=== PATIENT | male | born 1965 | race Caucasian/White ===

== ENCOUNTER 2024-11-25 06:20 | Inpatient (IN) | payer OTHER ==
[~2024-11-25] VITALS: Ht 167.6 cm; Wt 71.7 kg
[2024-11-25] VITALS (29 sets, daily range): BP systolic 101–145; BP diastolic 66–88; TEMP 97–100.6; O2SAT 98–100
[2024-11-25] MEDS ORDERED: BUPIVACAINE 0.5 % PF 150 MG/30 ML VIAL ONE (06:56)
[2024-11-25] MEDS ORDERED: POLYMYXIN B SULFATE 0 UNITS ONE (06:56)
[2024-11-25] MEDS ORDERED: TRANEXAMIC ACID 1,000 MG/10 ML VIAL ONE ×3 (06:56→10:40)
[2024-11-25] MEDS ORDERED: ANESTHESIA TRAY IN PYXIS 1 EA TRAY MC ONE (06:56)
[2024-11-25] MEDS ORDERED: FENTANYL PF 250MCG/5ML AMPUL ONE (07:13)
[2024-11-25] MEDS ORDERED: ROCURONIUM BROMIDE 50 MG/5 ML ONE (07:15)
[2024-11-25] MEDS ORDERED: TRIAMCINOLONE ACETONIDE SUSP 40 MG/ML 1 ML ONE ×2 (07:51→07:52)
[2024-11-25] MEDS ORDERED: KETOROLAC TROMETHAMINE INJ 30 MG/ML VIAL ONE (07:51)
[2024-11-25] MEDS ORDERED: VANCOMYCIN 1 GM VIAL ONE (07:52)
[2024-11-25] MEDS ORDERED: BUPIVACAINE MPF W/EPI 0.25% 30 ML VIAL ONE (07:52)
[2024-11-25] MEDS ORDERED: LABETALOL HCL IV 100MG VIAL ONE (09:23)
[2024-11-25] MEDS ORDERED: SEVOFLURANE 250 ML BOTTLE IH ONE (09:23)
[2024-11-25] MEDS ORDERED: ALBUMIN 5% 250 ML IV ONE ×2 (09:59)
[2024-11-25] MEDS ORDERED: ALBUMIN 5% 500 ML IV ONE (11:35)
[2024-11-25] MEDS ORDERED: FENTANYL PF 100MCG/2ML AMPUL ONE (12:25)
[2024-11-25] MEDS: FENTANYL PF 100MCG/2ML AMPUL IV PRN (12:28)
[2024-11-25 12:42] LABS: HEMOGLOBIN 9.7 g/dL (13.5-17.5)
[2024-11-25] MEDS ORDERED: MAG HYDROX/AL HYDROX/SIMETH 30 ML UDC PO PRN (14:00)
[2024-11-25] MEDS ORDERED: ONDANSETRON HCL/PF 4 MG/2 ML VIAL IVP PRN (14:00)
[2024-11-25] MEDS ORDERED: MAGNESIUM HYDROXIDE 30 ML UDC PO PRN (14:00)
[2024-11-25] MEDS: IV NS 0.9% 1,000 ML IV PRN (14:31)
[2024-11-25] MEDS ORDERED: LISI10TA30 GT (17:22)
[2024-11-25] MEDS: MORPHINE SULFATE INJ 2 MG/ML DISP.SYRIN IV PRN (17:26)
[2024-11-25] MEDS: ACETAMINOPHEN 325 MG TABLET PO PRN (19:37)
[2024-11-25] MEDS: CEFAZOLIN 2 GM in IV D5W 100 ML IV SCH (20:11)
[2024-11-26] VITALS (31 sets, daily range): BP systolic 108–141; BP diastolic 59–89; TEMP 98.6–99.2; O2SAT 97–100
[2024-11-26 05:21] LABS: HEMATOCRIT 27 % (39-51); HEMOGLOBIN 9.1 g/dL (13.5-17.5); LYMPHOCYTES # (AUTO) 0.7 K/uL (0.8-4.8); LYMPHOCYTES % (AUTO) 6.6 % (20.0-44.0); MEAN CORPUSCULAR HEMOGLOBIN 28 PG (26.0-33.0); MEAN CORPUSCULAR HGB CONC 34 g/dl (31.0-36.0); MEAN CORPUSCULAR VOLUME 82 fL (80-96); MONOCYTES # (AUTO) 0.8 K/uL (0.1-1.30); MONOCYTES % (AUTO) 7.9 % (2.0-12.0); NEUTROPHILS # (AUTO) 9.2 K/uL (1.8-8.9); NEUTROPHILS % (AUTO) 85.5 % (43.0-81.0); PLATELET COUNT (AUTO) 136 K/uL (150-450); RED BLOOD CELL COUNT(AUTO) 3.31 MIL/uL (4.5-6.0); RED CELL DISTRIBUTION WIDTH 15.2 % (11.5-15.0); WHITE BLOOD COUNT (AUTO) 10.8 K/uL (4.3-11.0)
[2024-11-26 05:35] LABS: CALCIUM, SERUM 7.7 mg/dL (8.5-10.1); CREATININE 0.6 mg/dL (0.6-1.3); MAGNESIUM 1.6 mg/dL (1.8-2.4); PHOSPHORUS 3.2 mg/dL (2.5-4.9); POTASSIUM 3.6 mmol/L (3.5-5.1)
[2024-11-26] MEDS: PANTOPRAZOLE 40 MG VIAL IV SCH (08:52)
[2024-11-26] MEDS: Magnesium 1GM/D5W 100ML PREMIX 100 ML IV SCH (10:23)
[2024-11-26] MEDS: ENOXAPARIN SODIUM 40 MG/0.4 ML DISP.SYRIN SQ SCH (12:00)
[2024-11-27] VITALS (13 sets, daily range): BP systolic 102–140; BP diastolic 61–82; TEMP 98.1–99.2; O2SAT 97–100
[2024-11-27 04:06] LABS: BASOPHILS % (AUTO) 0.1 % (0.0-2.0); HEMATOCRIT 24 % (39-51); LYMPHOCYTES # (AUTO) 0.9 K/uL (0.8-4.8); LYMPHOCYTES % (AUTO) 9.1 % (20.0-44.0); MEAN CORPUSCULAR HEMOGLOBIN 27 PG (26.0-33.0); MEAN CORPUSCULAR HGB CONC 33 g/dl (31.0-36.0); MEAN CORPUSCULAR VOLUME 83 fL (80-96); MONOCYTES # (AUTO) 0.8 K/uL (0.1-1.30); NEUTROPHILS # (AUTO) 7.7 K/uL (1.8-8.9); NEUTROPHILS % (AUTO) 81.8 % (43.0-81.0); PLATELET COUNT (AUTO) 127 K/uL (150-450); RED BLOOD CELL COUNT(AUTO) 2.91 MIL/uL (4.5-6.0); RED CELL DISTRIBUTION WIDTH 15.2 % (11.5-15.0); WHITE BLOOD COUNT (AUTO) 9.4 K/uL (4.3-11.0)
[2024-11-27 04:19] LABS: CREATININE 0.6 mg/dL (0.6-1.3); POTASSIUM 3.7 mmol/L (3.5-5.1)
[2024-11-28] VITALS: BP 113/71; TEMP 98; O2SAT 98
[2024-11-28 04:00] VITALS: BP 125/79; TEMP 98.9; O2SAT 100
[2024-11-28 08:00] VITALS: BP 127/81; TEMP 98.2; O2SAT 100
[2024-11-28] MEDS ORDERED: ENOX40DI SQ (09:03)
[2024-11-28] MEDS: PANTOPRAZOLE 40 MG TABLET.DR PO SCH (09:06)
[2024-11-28 16:00] VITALS: BP 124/80; TEMP 97.9; O2SAT 100
[2024-11-29] VITALS: BP 123/76; TEMP 98.2; O2SAT 99
[2024-11-29 08:00] VITALS: BP 128/76; TEMP 98.2; O2SAT 99
[2024-11-29 16:00] VITALS: BP 117/77; TEMP 98.6; O2SAT 99
[2024-11-29 20:00] VITALS: BP 121/81; TEMP 98.4; O2SAT 99
[2024-11-30 04:00] VITALS: BP 122/84; TEMP 98.2; O2SAT 100
[2024-11-30 08:00] VITALS: BP 132/88; TEMP 97.5; O2SAT 97
[2024-11-30 16:00] VITALS: BP 111/75; TEMP 98.1; O2SAT 98
[2024-11-30 20:00] VITALS: BP 118/80; TEMP 98.6; O2SAT 98
[2024-12-01 04:00] VITALS: BP 124/82; TEMP 97.9; O2SAT 99
[2024-12-01 08:00] VITALS: BP_SYST 126; BP_SYST 131; BP_DIAS 82; BP_DIAS 83; TEMP 97.9; O2SAT 99
[2024-12-01 16:00] VITALS: BP 111/65; TEMP 98.8; O2SAT 100
[2024-12-01 16:40] VITALS: BP 111/65; TEMP 98.8; O2SAT 100
[2024-12-01 20:00] VITALS: BP 127/78; TEMP 98.4; O2SAT 98
[2024-12-02 04:00] VITALS: BP 136/86; TEMP 98.2; O2SAT 98
[2024-12-02 08:00] VITALS: BP 154/76; TEMP 97.9; O2SAT 99
[2024-12-02 16:00] VITALS: BP 130/84; TEMP 98.1; O2SAT 98; O2SAT 99
[2024-12-02 20:00] VITALS: BP 122/81; TEMP 97.8; O2SAT 98
[2024-12-03 04:00] VITALS: BP 126/77; TEMP 97.8; O2SAT 99
[2024-12-03 08:00] VITALS: BP 121/70; TEMP 98; O2SAT 99
[2024-12-03 12:40] VITALS: BP 120/63; TEMP 98; O2SAT 98
[2024-12-03 15:40] LABS: BASOPHILS % (AUTO) 0.4 % (0.0-2.0); EOSINOPHILS # (AUTO) 0.1 K/uL (0.0-0.7); EOSINOPHILS % (AUTO) 1.5 % (0.0-6.0); HEMATOCRIT 29 % (39-51); HEMOGLOBIN 9.4 g/dL (13.5-17.5); LYMPHOCYTES % (AUTO) 12.9 % (20.0-44.0); MEAN CORPUSCULAR HEMOGLOBIN 27 PG (26.0-33.0); MEAN CORPUSCULAR HGB CONC 33 g/dl (31.0-36.0); MEAN CORPUSCULAR VOLUME 82 fL (80-96); MONOCYTES # (AUTO) 0.8 K/uL (0.1-1.30); MONOCYTES % (AUTO) 10.4 % (2.0-12.0); NEUTROPHILS # (AUTO) 5.6 K/uL (1.8-8.9); NEUTROPHILS % (AUTO) 74.8 % (43.0-81.0); PLATELET COUNT (AUTO) 282 K/uL (150-450); RED BLOOD CELL COUNT(AUTO) 3.51 MIL/uL (4.5-6.0); RED CELL DISTRIBUTION WIDTH 15.3 % (11.5-15.0); WHITE BLOOD COUNT (AUTO) 7.5 K/uL (4.3-11.0)
[2024-12-03 17:15] VITALS: BP 118/65; TEMP 98; O2SAT 97
[2024-12-03 20:00] VITALS: BP 113/67; TEMP 98; O2SAT 99
[2024-12-04 04:00] VITALS: BP 110/75; TEMP 98.6; O2SAT 99
[2024-12-04 08:00] VITALS: BP 112/77; TEMP 97; O2SAT 98
[2024-12-04 16:00] VITALS: BP 111/76; TEMP 99.1; O2SAT 99
[2024-12-04 20:00] VITALS: BP 116/77; TEMP 97.9; O2SAT 98
[2024-12-05 04:00] VITALS: BP 116/76; TEMP 98.2; O2SAT 100
[2024-12-05 08:00] VITALS: BP 118/77; TEMP 99.3; O2SAT 99
[2024-12-05 16:00] VITALS: BP_SYST 107; BP_SYST 111; BP_DIAS 70; BP_DIAS 76; TEMP 97.9; TEMP 99.1; O2SAT 99
[2024-12-05 20:00] VITALS: BP 110/75; TEMP 98.4; O2SAT 98
[2024-12-06 04:00] VITALS: BP 120/82; TEMP 97.5; O2SAT 99
[2024-12-06 08:00] VITALS: BP 117/89; TEMP 97.7; O2SAT 100
[2024-12-06 16:00] VITALS: BP 116/78; TEMP 98; O2SAT 100
[2024-12-06 20:00] VITALS: BP 112/78; TEMP 98.4; O2SAT 98
[2024-12-07 04:00] VITALS: BP 119/84; TEMP 97.9; O2SAT 98
[2024-12-07 08:00] VITALS: BP 139/79; TEMP 98; O2SAT 100
[2024-12-07 16:00] VITALS: BP 133/24; TEMP 98.2; O2SAT 100
[2024-12-07 20:00] VITALS: BP 100/62; TEMP 97.7; O2SAT 98
[2024-12-08 04:00] VITALS: BP 109/73; TEMP 98.1; O2SAT 97
[2024-12-08 08:00] VITALS: BP 119/79; TEMP 98; O2SAT 98
== END 2024-12-08 13:08 | DRG 468 ==
LOC: DS 06:20 → ICU 13:15 → TELE1 11-27 08:46 → MEDSG1 11-28 10:12
PROVIDERS: ADMIT Nurse Practitioner Family; ATTEND Internal Medicine
PROC: 30233N1 Transfusion of Nonautologous Red Blood Cells into Peripheral Vein, Percutaneous Approach (ICD-10-PCS; 2024-11-25)
PROC: 0SR90JZ Replacement of Right Hip Joint with Synthetic Substitute, Open Approach (ICD-10-PCS; 2024-11-25)
PROC: 0SW90JZ Revision of Synthetic Substitute in Right Hip Joint, Open Approach (ICD-10-PCS; principal; 2024-11-25 07:30)
DX: T84.020A Dislocation of internal right hip prosthesis, initial encounter (principal); Y83.8 Other surgical procedures as the cause of abnormal reaction of the patient, or of later complication, without mention of misadventure at the time of the procedure; Y92.009 Unspecified place in unspecified non-institutional (private) residence as the place of occurrence of the external cause; G89.29 Other chronic pain; I10 Essential (primary) hypertension; D64.89 Other specified anemias; R26.81 Unsteadiness on feet
CPT/HCPCS: 36415; 72170-TC; 80048-TC; 82962-TC; 83735-TC; 84100-TC; 85025-TC; 85027-TC; 86850-TC; 87040-TC; 87081-TC; 88300-TC; 97110-TC; 97112-TC; 97116-TC; 97530-TC; 97535-TC; A4217; A4223; A4349; A6209; A6253; A6403; C1713; C1776; G0378; J0461; J0690; J1650; J1885; J2270; J2470; J2704; J3010; J3370; J3475; J3490; J7030; J7050; J7060; P9016; P9045